=== PATIENT | female | born 1960 | race Caucasian/White ===

== ENCOUNTER 2017-05-13 12:36 | Emergency (ER) | payer MEDICARE, MEDICAID ==
[2017-05-13] MEDS ORDERED: Ketorolac 60 MG/2 ML SDV IM ONE (13:18)
[2017-05-13 13:27] VITALS: BP 180/92
--- NOTE | 2017-05-13 14:24 | EDM.PDOC ---
ED HPI GENERAL MEDICAL PROBLEM - General Chief Complaint: Lower Extremity Injury/Pain Stated Complaint: numbness left arm Time Seen by Provider: 05/13/17 13:25 Source of Information: Reports: Patient History Limitations: Reports: No Limitations - History of Present Illness Onset: Today Duration: Hour(s): (3) Quality: Reports: Ache, Same as Previous Episode, Throbbing Severity: Moderate Improves with: Reports: None Worsens with: Reports: None Context: Reports: Other (chronic back pain) Associated Symptoms: Reports: Fever/Chills Treatments DIRECTOR OF SCIENCE: Reports: Acetaminophen Lower Back Pain Score (Numeric/FACES): 10 - Related Data Allergies Allergy/AdvReac Type Severity Reaction Status Date / Time Penicillins Allergy Cannot Verified 05/13/17 13:27 Remember Sulfa (Sulfonamide Allergy Cannot Verified 05/13/17 13:27 Antibiotics) Remember Home Meds: Home Meds Tolterodine [Detrol LA 24 Hr] 4 mg PO DAILY 12/22/13 [History] traZODone HCl [Trazodone HCl] 50 - 200 mg PO BEDTIME PRN 12/22/13 [History] traMADol HCl [Ultram] 50 mg PO TID 04/01/16 [History] Aspirin [Halfprin] 81 mg PO DAILY 04/02/16 [History] Docusate Sodium [Colace] 100 mg PO DAILY PRN 04/02/16 [History] Fenofibrate,Micronized [Fenofibrate] 134 mg PO DAILY 04/02/16 [History] Gabapentin [Neurontin] 300 mg PO BID 04/02/16 [History] Lurasidone [Latuda] 40 mg PO QPM 04/02/16 [History] Naproxen 500 mg PO BID PRN 04/02/16 [History] Omeprazole [Prilosec] 20 mg PO DAILY 04/02/16 [History] lamoTRIgine [LaMICtal] 150 mg PO DAILY 04/02/16 [History] sitaGLIPtin Phos/Metformin HCl [Janumet 50-1,000 MG] 1 each PO BIDMEALS [History] tiZANidine HCl [Zanaflex] 2 mg PO DAILY PRN 04/02/16 [History] Past Medical History - Past Health History Medical/Surgical History: Denies Medical/Surgical History HEENT History: Reports: None Cardiovascular History: Reports: High Cholesterol, Hypertension Respiratory History: Reports: Asthma, Bronchitis, Recurrent, Other (See Below) Other Respiratory History: smoker Gastrointestinal History: Reports: GERD, Irritable Bowel Syndrome Genitourinary History: Reports: None 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: Musculoskeletal History: Reports: Arthritis, Back Pain, Chronic Neurological History: Reports: Headaches, Chronic Psychiatric History: Reports: Anxiety, Depression, Emotional Problems, Learning Disability Endocrine/Metabolic History: Reports: Diabetes, Type II Hematologic History: Reports: Other (See Below) Other Hematologic History: low sodium, cramps Immunologic History: Reports: None Oncologic (Cancer) History: Reports: None Dermatologic History: Reports: None - Past Surgical History GI Surgical History: Reports: Cholecystectomy, Other (See Below) Social & Family History - Family History : Reports: None Endocrine/Metabolic: Reports: None Hematologic: Reports: None - Tobacco Use Smoking Status *Q: Never Smoker Years of Tobacco use: 45 Packs/Tins Daily: 1 Used Tobacco, but Quit: No Month Tobacco Last Used: unknown Second Hand Smoke Exposure: No - Caffeine Use Caffeine Use: Reports: Coffee - Alcohol Use Days Per Week of Alcohol Use: 0 Number of Drinks Per Day: 0 Total Drinks Per Week: 0 - Recreational Drug Use Recreational Drug Use: No Drug Use in Last 12 Months: No Review of Systems - Review of Systems Review Of Systems: See Below Constitutional: Reports: Chills Eyes: Reports: No Symptoms Ears: Reports: No Symptoms Nose: Reports: No Symptoms Mouth/Throat: Reports: No Symptoms Respiratory: Reports: No Symptoms Cardiovascular: Reports: No Symptoms GI/Abdominal: Reports: No Symptoms Genitourinary: Reports: No Symptoms Musculoskeletal: Reports: Back Pain Skin: Reports: No Symptoms (Left arm) Neurological: Reports: Numbness Psychiatric: Reports: No Symptoms ED EXAM, GENERAL - Physical Exam Exam: See Below Exam Limited By: No Limitations General Appearance: Alert, WD/WN, No Apparent Distress Eye Exam: Bilateral Eye: Normal Fundi, Normal Inspection, PERRL Ears: Normal External Exam, Normal Canal, Hearing Grossly Normal, Normal TMs Ear Exam: Bilateral Ear: Auricle Normal, Canal Normal, TM normal Nose: Normal Inspection, Normal Mucosa, No Blood Throat/Mouth: Normal Inspection, Normal Lips, Normal Teeth, Normal Gums, Normal Oropharynx, Normal Voice, No Airway Compromise Head: Atraumatic, Normocephalic Neck: Normal Inspection, Supple, Non-Tender, Full Range of Motion Respiratory/Chest: No Respiratory Distress, Lungs Clear, Normal Breath Sounds, No Accessory Muscle Use, Chest Non-Tender Cardiovascular: Normal Peripheral Pulses, Regular Rate, Rhythm, No Edema, No Gallop, No JVD, No Murmur, No Rub Peripheral Pulses: 2+: Posterior Tibial (L), Posterior Tibial (R), Dorsalis Pedis (L), Dorsalis Pedis (R) GI/Abdominal: Normal Bowel Sounds, Soft, Non-Tender, No Organomegaly, No Distention, No Abnormal Bruit, No Mass Back Exam: Decreased Range of Motion, Muscle Spasm (left lower back and left arm numbness that has been there before.), Paraspinal Tenderness Extremities: Normal Inspection Neurological: Alert, Oriented, CN II-XII Intact, Normal Cognition, Normal Gait, Normal Reflexes, No Motor/Sensory Deficits Psychiatric: Normal Affect, Normal Mood Skin Exam: Warm, Dry, Intact, Normal Color, No Rash Lymphatic: No Adenopathy Course - Vital Signs Text/Narrative:: Uneventful ED course. She was given IM toradol and that brought her pain down to a 4/10 from a 10/10. She wanted to go home and take her Flexeril and take a nap. Last Recorded V/S: Last Vital Signs Temp Pulse 105 H 05/13/17 13:20 Resp 18 05/13/17 13:20 BP 180/92 H 05/13/17 13:20 Pulse Ox 98 05/13/17 13:20 - Orders/Labs/Meds Labs: Laboratory Tests 05/13/17 05/13/17 Range/Units 13:30 13:30 WBC 11.6 H (4.0-11.0) K/uL RBC 5.22 (3.80-5.80) M/uL Hgb 14.5 (11.5-16.5) g/dL Hct 43.3 (37.0-47.0) % MCV 83 (76-96) fL MCH 27.8 (27.0-32.0) pg MCHC 33.5 (31.0-35.0) g/dL RDW 14.5 (11.0-16.0) % Plt Count 384 (150-500) K/uL MPV 10.0 (6.0-10.0) fL Neut % (Auto) 62.3 (45.0-70.0) % Lymph % (Auto) 30.7 (20.0-40.0) % [place] % (Auto) 6.1 (3.0-10.0) % Eos % (Auto) 0.6 L (1.0-5.0) % Baso % (Auto) 0.3 (0.0-0.5) % Neut # (Auto) 7.25 (2.00-7.50) K/uL Lymph # (Auto) 3.57 (1.50-4.00) K/uL [place] # (Auto) 0.71 (0.20-0.80) K/uL Eos # (Auto) 0.07 (0.04-0.40) K/uL Baso # (Auto) 0.04 (0.02-0.10) K/uL Sodium 142 (136-145) mmol/L Potassium 3.6 (3.5-5.1) mmol/L Chloride 103 (98-107) mmol/L Carbon Dioxide 26.9 (21.0-32.0) mmol/L Anion Gap 15.7 H (5.0-15.0) mmol/L BUN 11 D (8-26) mg/dL Creatinine 1.19 H (0.55-1.02) mg/dL Est Cr Clr Drug Dosing 36.56 mL/min Estimated GFR (MDRD) 46 L (>60) MLS/MIN BUN/Creatinine Ratio 9.2 (6-25) Glucose 128 H (74-100) mg/dL Calcium 9.4 (8.5-10.1) mg/dL Total Bilirubin 0.5 (0.0-1.0) mg/dL AST 33 (15-37) U/L ALT 41 (12-78) U/L Alkaline Phosphatase 62 (46-116) U/L Total Protein 8.1 (6.4-8.2) g/dL Albumin 4.5 (3.4-5.0) g/dL Globulin 3.6 (2.2-4.2) g/dL Albumin/Globulin Ratio 1.2 (0.8-2.0) Meds: Medications Discontinued Medications Generic Name Dose Route Start Last Admin Trade Name Freq PRN Reason Stop Dose Admin Ketorolac Tromethamine 60 mg 06/18/17 13:18 05/13/17 13:29 Toradol IM 05/13/17 13:19 60 mg ONETIME ONE Administration Departure - Departure Time of Disposition: 14:24 Disposition: Home, Self-Care 01 Preliminary Cause of *Q: Cardiac Arrest Condition: Good Clinical Impression: Left arm numbness Lumbago Qualifiers: Chronicity: chronic Back pain laterality: left Sciatica presence: with sciatica Sciatica laterality: sciatica of left side Qualified Code(s): M54.42 - Lumbago with sciatica, left side; G89.29 - Other chronic pain - Discharge Information Instructions: Cryotherapy, [id number] Referrals: PCP,None [Primary Care Provider] - Forms: ED Department Discharge Additional Instructions: Take the naproxen tonight and tomorrow start to take the naproxen every 12 hours -- you can take one in the morning and one at night. If you have any questions call [phone] and for a clinic appt [phone]. Take the Flexeril with breakfast, lunch, and dinner.
== END 2017-05-13 14:13 | disposition home or self-care (01) ==
LOC: LB.ED 12:36
DX: M54.42 Lumbago with sciatica, left side (principal); G89.29 Other chronic pain; R20.0 Anesthesia of skin; E78.00 Pure hypercholesterolemia, unspecified; I10 Essential (primary) hypertension; Z79.82 Long term (current) use of aspirin; J45.909 Unspecified asthma, uncomplicated; K21.9 Gastro-esophageal reflux disease without esophagitis; F41.9 Anxiety disorder, unspecified; F32.9 Major depressive disorder, single episode, unspecified; E11.9 Type 2 diabetes mellitus without complications; M19.90 Unspecified osteoarthritis, unspecified site; Z90.49 Acquired absence of other specified parts of digestive tract; Z88.0 Allergy status to penicillin; Z88.2 Allergy status to sulfonamides; Z79.899 Other long term (current) drug therapy
CPT/HCPCS: 36415; 80053; 85025; 96372; 99283; J1885

== ENCOUNTER 2019-10-08 20:10 | Emergency (ER) | payer MEDICARE, MEDICAID ==
[2019-10-08 21:34] VITALS: BP 156/98; PULSE 85
--- NOTE | 2019-10-08 22:33 | ER ---
REASON FOR EMERGENCY ROOM VISIT: Sore throat. HISTORY: This 59-year-old woman comes in with a 1-day history of bilateral ear fullness with a sore throat and minimally productive cough. She has not had any myalgias or GI symptoms. She denies any fever or chills. She was vaccinated for influenza earlier this fall. PAST MEDICAL HISTORY: Significant for: 1. Diabetes mellitus. 2. Hypertension. 3. Bipolar disorder. 4. Obesity. 5. GERD. 6. Schizophrenia. 7. Low back pain with spinal stenosis in the lumbar area. MEDICATIONS WERE: Reviewed. Please see EMR. ALLERGIES: TO PENICILLIN AND SULFA. REVIEW OF SYSTEMS: Pertinent positives and negatives as listed in the HPI. PHYSICAL EXAMINATION: GENERAL: Reveals a pleasant woman in no acute distress. She is afebrile. Pulse of 85, blood pressure 156/98, respiratory rate 16, O2 sats 98% on room air. HEENT: No conjunctivitis. TMs are visualized and appear normal. Oropharynx is normal. She is edentulous. NECK: Supple. No adenopathy. CHEST: Clear to auscultation with good breath sounds bilaterally and no wheezes, rhonchi, or rales. CARDIAC: Regular rate without murmur. ABDOMEN: Soft. No organomegaly. SKIN: No rashes. IMPRESSION: Upper respiratory tract infection. PLAN: I discussed whether the usual supportive measures including ibuprofen or Tylenol as needed, antitussive medications [id number], Zyrtec as needed if she gets nasal congestion. Rest and plenty of liquids. If she feels worse or develops fever or increased respiratory problems, she should be seen again and I urged her to follow up with her provider Zoey Rodriguez in the clinic if there are any additional questions or concerns going forward. She agrees with this and understands and all questions were answered. DELON /[id number]
== END 2019-10-08 21:59 | disposition home or self-care (01) ==
LOC: LB.ED 20:10
DX: J06.9 Acute upper respiratory infection, unspecified (principal); I10 Essential (primary) hypertension; E11.9 Type 2 diabetes mellitus without complications; E66.9 Obesity, unspecified; Z68.41 Body mass index [BMI] 40.0-44.9, adult
CPT/HCPCS: 99282

== ENCOUNTER 2020-08-06 07:01 | Day surgery (SDC) | payer MEDICARE, MEDICAID ==
[~2020-08-06 07:01] MED LIST: Metoclopramide 10 MG/2 ML SDV IV PRN; Sodium Chloride 0.9% 1,000 ML IV SCH
[2020-08-06] MEDS ORDERED: Propofol 1,000 MG/100 ML SDV ONE (10:00)
--- NOTE | 2020-08-06 10:47 | OR ---
DATE OF OPERATION: 08/06/2020 SURGEON: Jaden Wolf MD PREOPERATIVE DIAGNOSIS: Screening colonoscopy. POSTOPERATIVE DIAGNOSIS: Screening colonoscopy. PROCEDURE: Colonoscopy with polypectomy. ANESTHESIA: MAC. ESTIMATED BLOOD LOSS: Minimal. COMPLICATIONS: None. INDICATION FOR THE PROCEDURE: The patient is a 60-year-old female who last had a colonoscopy approximately 10 years ago. She denies any change in bowel habits since that time. DESCRIPTION OF PROCEDURE: Informed consent was obtained with the patient. The patient was taken to the operating room and placed on table in left lateral decubitus position. Monitored anesthesia care was administered. Digital rectal exam performed, it was normal. Colonoscope was then advanced through the sigmoid. She did have a very tortuous sigmoid. Adult scope removed, pediatric colonoscope inserted. I was able to negotiate through the sigmoid and did reach the cecum. Cecum was identified by appendiceal orifice and ileocecal valve. Colonoscope was then slowly withdrawn. She did have several polyps in the proximal ascending colon removed by hot forceps polypectomy. Descending colon polyp also removed with hot forceps polypectomy. She had 1 small sigmoid colon polyp removed by hot forceps polypectomy and an additional sigmoid colon polyp removed by hot snare polypectomy. All polyps were small and sessile. She did have mild diverticulosis throughout the colon. Colonoscope was further withdrawn. Rectum was unremarkable. Colonoscope was then fully withdrawn. FINDINGS: Pancolonic diverticulosis and colon polyps x4. RECOMMENDATIONS: We will follow up on pathology. Nothing appeared concerning for cancer. Plan for repeat colonoscopy in 3 years. ANTHONY/DAKOTA /[id number]
[2020-08-06 12:34] VITALS: BP 156/84; PULSE 80
== END 2020-08-06 11:30 | disposition home or self-care (01) ==
LOC: LB.SDS 07:01
PROVIDERS: ATTEND Surgery
DX: Z12.11 Encounter for screening for malignant neoplasm of colon (principal); K57.30 Diverticulosis of large intestine without perforation or abscess without bleeding; I10 Essential (primary) hypertension; E11.9 Type 2 diabetes mellitus without complications; E78.5 Hyperlipidemia, unspecified; F51.04 Psychophysiologic insomnia; F17.210 Nicotine dependence, cigarettes, uncomplicated; E78.2 Mixed hyperlipidemia; K21.9 Gastro-esophageal reflux disease without esophagitis; N39.3 Stress incontinence (female) (male); K58.9 Irritable bowel syndrome, unspecified; M19.90 Unspecified osteoarthritis, unspecified site; D12.5 Benign neoplasm of sigmoid colon; D12.2 Benign neoplasm of ascending colon; D12.4 Benign neoplasm of descending colon; Z79.899 Other long term (current) drug therapy; Z79.82 Long term (current) use of aspirin; Z79.84 Long term (current) use of oral hypoglycemic drugs
CPT/HCPCS: 45384; 45385; 82962; J2704; J7030; 88305

== ENCOUNTER 2021-06-11 23:42 | Emergency (ER) | payer MEDICARE, MEDICAID ==
[2021-06-12] MEDS ORDERED: Naloxone 2 MG/2 ML Syringe IVPUSH STA (00:13)
[2021-06-12] MEDS ORDERED: Sodium Chloride 0.9% 1,000 ML IV ONE (00:13)
[2021-06-12] MEDS ORDERED: Sodium Chloride 0.9% 10 ML Syringe FLUSH PRN (00:13)
--- NOTE | 2021-06-12 00:26 | EDM.PDOCBH ---
ED HPI GENERAL MEDICAL PROBLEM - General Chief Complaint: Drug or Alcohol Abuse Stated Complaint: MEDICATION MANAGEMENT Time Seen by Provider: 06/11/21 23:45 Source of Information: Reports: EMS History Limitations: Reports: Altered Mental Status - History of Present Illness INITIAL COMMENTS - FREE TEXT/NARRATIVE: was brought to the ER due to a possible overdose. h/o drug abuse in the past. U-ibnta arrival - Related Data Allergies Allergy/AdvReac Type Severity Reaction Status Date / Time Penicillins Allergy Cannot Verified 08/06/20 07:35 Remember Sulfa (Sulfonamide Allergy Cannot Verified 08/06/20 07:35 Antibiotics) Remember Home Meds: Home Meds Aspirin [Halfprin] 81 mg PO DAILY 04/02/16 [History] Docusate Sodium [Colace] 100 mg PO DAILY PRN 04/02/16 [History] Fenofibrate,Micronized [Fenofibrate] 134 mg PO DAILY 04/02/16 [History] Gabapentin [Neurontin] 300 mg PO BID 04/02/16 [History] Lurasidone [Latuda] 60 mg PO QPM 04/02/16 [History] Omeprazole [Prilosec] 20 mg PO DAILY 04/02/16 [History] lamoTRIgine [LaMICtal] 150 mg PO DAILY 04/02/16 [History] tiZANidine HCl [Zanaflex] 2 mg PO DAILY PRN 04/02/16 [History] Blood-Glucose Meter [Accu-Chek Aileen Connect] 1 strip .ROUTE ASDIRECTED 05/16/17 [History] Lisinopril/Hydrochlorothiazide [Lisinopril-Hctz 10-12.5 mg Tab] 1 each PO DAILY 05/16/17 [History] traZODone HCl [Trazodone HCl] 100 tab PO BEDTIME 05/16/17 [History] Acetaminophen [Tylenol Arthritis Pain] 650 mg PO BID PRN 11/28/18 [History] Tolterodine Tartrate [Detrol LA] 4 mg PO DAILY 11/28/18 [History] atorvaSTATin [Lipitor] 10 mg PO DAILY 11/28/18 [History] sitaGLIPtin Phos/Metformin HCl [Janumet 50-500 MG] 50 mg PO BID 11/28/18 [History] traMADol HCl [Tramadol HCl] 50 mg PO DAILY 11/28/18 [History] Past Medical History - Past Health History Medical/Surgical History: Denies Medical/Surgical History HEENT History: Reports: None Cardiovascular History: Reports: High Cholesterol, Hypertension Respiratory History: Reports: Asthma, Bronchitis, Recurrent, Other (See Below) Other Respiratory History: smoker, has cut down to 2 cigs day Gastrointestinal History: Reports: GERD, Irritable Bowel Syndrome Genitourinary History: Reports: Urinary Incontinence 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: Musculoskeletal History: Reports: Arthritis, Back Pain, Chronic, Other (See Below) Other Musculoskeletal History: carpal tunnel left wrist, left foot pain 4th and 5th diget and top of foot (left) Neurological History: Reports: Headaches, Chronic, Other (See Below) Other Neuro History: complaint of numb lip Psychiatric History: Reports: Anxiety, Depression, Emotional Problems, Learning Disability Endocrine/Metabolic History: Reports: Diabetes, Type II Hematologic History: Reports: Other (See Below) Other Hematologic History: low sodium, cramps Immunologic History: Reports: None Oncologic (Cancer) History: Reports: None Dermatologic History: Reports: None - Past Surgical History GI Surgical History: Reports: Cholecystectomy, Other (See Below) Female Surgical History: Reports: None Endocrine Surgical History: Reports: None Neurological Surgical History: Reports: None Social & Family History - Family History Family Medical History: No Pertinent Family History : Reports: None Endocrine/Metabolic: Reports: None Hematologic: Reports: None - Caffeine Use Caffeine Use: Reports: Coffee COURSE, BEHAVIORAL HEALTH COMP - Course Orders, Labs, Meds: Active Orders 24 hr Category Date Time Status BASIC METABOLIC PANEL,BMP [CHEM] Stat Lab 06/12/21 00:13 Ordered CBC W/O DIFF,HEMOGRAM [HEME] Stat Lab 06/12/21 00:13 Ordered DRUG SCREEN, URINE [URCHEM] Stat Lab 06/12/21 00:13 Ordered Sodium Chloride 0.9% [Normal Saline] 1,000 ml Med 06/12/21 00:13 Ordered IV .BOLUS Sodium Chloride 0.9% [Saline Flush] Med 06/12/21 00:13 Ordered 10 ml FLUSH ASDIRECTED PRN Saline Lock Insert [OM.PC] Routine Oth 06/12/21 00:13 Ordered Medication Orders Sodium Chloride (Normal Saline) 1,000 mls @ 999 mls/hr IV .BOLUS ONE Stop: 06/12/21 01:13 Sodium Chloride (Sodium Chloride 0.9% 10 Ml Syringe) 10 ml FLUSH ASDIRECTED PRN PRN Reason: Keep Vein Open Medications Generic Name Dose Route Start Last Admin Trade Name Trevor PRN Reason Stop Dose Admin Sodium Chloride 1,000 mls @ 999 mls/hr 06/12/21 00:13 Normal Saline IV 06/12/21 01:13 .BOLUS ONE Sodium Chloride 10 ml 06/12/21 00:13 Sodium Chloride 0.9% 10 Ml Syringe FLUSH ASDIRECTED PRN Keep Vein Open Discontinued Medications Generic Name Dose Route Start Last Admin Trade Name Trevor PRN Reason Stop Dose Admin Naloxone HCl 0.1 mg 06/12/21 00:13 Naloxone 2 Mg/2 Ml Syringe IVPUSH 06/12/21 00:14 NOW STA Departure - Discharge Information Forms: ED Department Discharge - My Orders Last 24 Hours: My Active Orders 06/12/21 00:13 BASIC METABOLIC PANEL,BMP [CHEM] Stat CBC W/O DIFF,HEMOGRAM [HEME] Stat DRUG SCREEN, URINE [URCHEM] Stat Sodium Chloride 0.9% [Normal Saline] 1,000 ml IV .BOLUS Sodium Chloride 0.9% [Saline Flush] 10 ml FLUSH ASDIRECTED PRN Saline Lock Insert [OM.PC] Routine - Assessment/Plan Last 24 Hours: My Active Orders 06/12/21 00:13 BASIC METABOLIC PANEL,BMP [CHEM] Stat CBC W/O DIFF,HEMOGRAM [HEME] Stat DRUG SCREEN, URINE [URCHEM] Stat Sodium Chloride 0.9% [Normal Saline] 1,000 ml IV .BOLUS Sodium Chloride 0.9% [Saline Flush] 10 ml FLUSH ASDIRECTED PRN Saline Lock Insert [OM.PC] Routine
[2021-06-12] MEDS ORDERED: traZODone 100 MG Tab PO STA (03:10)
--- NOTE | 2021-06-12 03:12 | EDM.PDOCBH ---
ED HPI GENERAL MEDICAL PROBLEM - General Chief Complaint: Behavioral/Psych Stated Complaint: MEDICATION MANAGEMENT Time Seen by Provider: 06/12/21 02:30 Source of Information: Reports: Patient History Limitations: Reports: No Limitations - History of Present Illness INITIAL COMMENTS - FREE TEXT/NARRATIVE: patient presented to the ER requesting to refill all her home meds she reports that she accidentally - dropped her meds on the floor. She usually get them refilled via a publish health care worker - but it's Sunday night - and she is here for an advice. No other symptoms. Her main concerns are her sleeping meds - Trazodone - which she is requesting to help her sleep. - Related Data Allergies Allergy/AdvReac Type Severity Reaction Status Date / Time Penicillins Allergy Cannot Verified 06/12/21 04:49 Remember Sulfa (Sulfonamide Allergy Cannot Verified 06/12/21 04:49 Antibiotics) Remember Home Meds: Home Meds Aspirin [Halfprin] 81 mg PO DAILY 04/02/16 [History] Docusate Sodium [Colace] 100 mg PO DAILY PRN 04/02/16 [History] Fenofibrate,Micronized [Fenofibrate] 134 mg PO DAILY 04/02/16 [History] Gabapentin [Neurontin] 300 mg PO BID 04/02/16 [History] Lurasidone [Latuda] 60 mg PO QPM 04/02/16 [History] Omeprazole [Prilosec] 20 mg PO DAILY 04/02/16 [History] lamoTRIgine [LaMICtal] 150 mg PO DAILY 04/02/16 [History] tiZANidine HCl [Zanaflex] 2 mg PO DAILY PRN 04/02/16 [History] Blood-Glucose Meter [Accu-Chek Aileen Connect] 1 strip .ROUTE ASDIRECTED 05/16/17 [History] Lisinopril/Hydrochlorothiazide [Lisinopril-Hctz 10-12.5 mg Tab] 1 each PO DAILY 05/16/17 [History] traZODone HCl [Trazodone HCl] 100 tab PO BEDTIME 05/16/17 [History] Acetaminophen [Tylenol Arthritis Pain] 650 mg PO BID PRN 11/28/18 [History] Tolterodine Tartrate [Detrol LA] 4 mg PO DAILY 11/28/18 [History] atorvaSTATin [Lipitor] 10 mg PO DAILY 11/28/18 [History] sitaGLIPtin Phos/Metformin HCl [Janumet 50-500 MG] 50 mg PO BID 11/28/18 [History] traMADol HCl [Tramadol HCl] 50 mg PO DAILY 11/28/18 [History] Past Medical History - Past Health History Medical/Surgical History: Denies Medical/Surgical History HEENT History: Reports: None Cardiovascular History: Reports: High Cholesterol, Hypertension Respiratory History: Reports: Asthma, Bronchitis, Recurrent, Other (See Below) Other Respiratory History: smoker, has cut down to 2 cigs day Gastrointestinal History: Reports: GERD, Irritable Bowel Syndrome Genitourinary History: 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: Urinary 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: Musculoskeletal History: Reports: Arthritis, Back Pain, Chronic, Other (See Below) Other Musculoskeletal History: carpal tunnel left wrist, left foot pain 4th and 5th diget and top of foot (left) Neurological History: Reports: Headaches, Chronic, Other (See Below) Other Neuro History: complaint of numb lip Psychiatric History: Reports: Anxiety, Depression, Emotional Problems, Learning Disability Endocrine/Metabolic History: Reports: Diabetes, Type II Hematologic History: Reports: Other (See Below) Other Hematologic History: low sodium, cramps Immunologic History: Reports: None Oncologic (Cancer) History: Reports: None Dermatologic History: Reports: None - Past Surgical History GI Surgical History: Reports: Cholecystectomy, Other (See Below) Female Surgical History: Reports: None Endocrine Surgical History: Reports: None Neurological Surgical History: Reports: None Social & Family History - Family History Family Medical History: No Pertinent Family History : Reports: None Endocrine/Metabolic: Reports: None Hematologic: Reports: None - Caffeine Use Caffeine Use: Reports: Coffee ED ROS GENERAL - Review of Systems Review Of Systems: See Below Constitutional: Reports: No Symptoms HEENT: Reports: No Symptoms Respiratory: Reports: No Symptoms Cardiovascular: Reports: No Symptoms GI/Abdominal: Reports: No Symptoms : Reports: No Symptoms Musculoskeletal: Reports: No Symptoms Skin: Reports: No Symptoms ED EXAM, BEHAVIORAL HEALTH - Physical Exam Exam: See Below Exam Limited By: No Limitations General Appearance: Alert, WD/WN, No Apparent Distress Eye Exam: Bilateral Eye: EOMI, PERRL Respiratory/Chest: No Respiratory Distress, Lungs Clear Cardiovascular: Normal Peripheral Pulses, Regular Rate, Rhythm GI/Abdominal: Normal Bowel Sounds, Soft, Non-Tender Extremities: Normal Inspection, Normal Range of Motion Neurological: Alert, Normal Mood/Affect COURSE, BEHAVIORAL HEALTH COMP - Course Orders, Labs, Meds: Medications Discontinued Medications Generic Name Dose Route Start Last Admin Trade Name Trevor PRN Reason Stop Dose Admin Trazodone HCl 100 mg 06/12/21 03:10 06/12/21 03:19 Trazodone 100 Mg Tab PO 06/12/21 03:11 100 mg NOW STA Administration Discharge vs Psych Eval/Treatment:: discussed with the patient that she can contact her public health care worker tomorrow's morning - who will be able to help her with her meds. No pharmacy is open tonight at midnight and none of her medications can cause problems if she misses a dose or 2. Her sleeping meds are her main concerns. meanwhile, I'll provide her with trazodone to help her sleep tonight. Patient agreed with the plan. Departure - Departure Time of Disposition: 01:30 Disposition: Home, Self-Care 01 Condition: Good Clinical Impression: Medication refill - Discharge Information *PRESCRIPTION DRUG MONITORING PROGRAM REVIEWED*: Not Applicable *COPY OF PRESCRIPTION DRUG MONITORING REPORT IN PATIENT FELIX: Not Applicable Instructions: What You Need To Know About Antipsychotic Medicines, Medicine Refill at the Emergency Department Referrals: PCP,Unknown [Ordering Only Provider] - Forms: ED Department Discharge Additional Instructions: - contact your public health specialist tomorrow ( Lavinia ) to discuss medications refill - Problem List & Annotations (1) Medication refill SNOMED Code(s): 536853444, 815245615, [id number] Code(s): Z76.0 - ENCOUNTER FOR ISSUE OF REPEAT PRESCRIPTION Status: Acute Priority: Low - Problem List Review Problem List Initiated/Reviewed/Updated: Yes
== END 2021-06-12 03:20 | disposition home or self-care (01) ==
LOC: LB.ED 23:42
DX: F32.9 Major depressive disorder, single episode, unspecified (principal); Z76.0 Encounter for issue of repeat prescription; E78.00 Pure hypercholesterolemia, unspecified; I10 Essential (primary) hypertension; K21.9 Gastro-esophageal reflux disease without esophagitis; E11.9 Type 2 diabetes mellitus without complications; Z79.82 Long term (current) use of aspirin; Z79.899 Other long term (current) drug therapy; Z88.0 Allergy status to penicillin; Z88.2 Allergy status to sulfonamides
CPT/HCPCS: 99281; 99282; A9270

== ENCOUNTER 2022-05-14 17:40 | Emergency (ER) | payer MEDICARE, MEDICAID ==
[2022-05-14] MEDS ORDERED: Sodium Chloride 0.9% 1,000 ML IV ONE ×2 (17:46→18:49)
[2022-05-14 18:31] LABS: ESTIMATED GFR 30 mL/min (>60)
[2022-05-14] MEDS ORDERED: Metoprolol Succinate 50 MG Tab.ER PO ONE (20:20)
[2022-05-14] MEDS ORDERED: Metoprolol Tartrate 50 MG Tab ONE (20:37)
[2022-05-14] MEDS ORDERED: Furosemide 40 MG/4 ML VIAL IVPUSH ONE (21:14)
[2022-05-14] MEDS ORDERED: Furosemide 40 MG/4 ML VIAL ONE (21:24)
[2022-05-14 21:59] VITALS: BP 171/88; PULSE 84
== END 2022-05-14 21:55 | disposition home or self-care (01) ==
LOC: LB.ED 17:40
DX: E86.0 Dehydration (principal); E87.1 Hypo-osmolality and hyponatremia; E87.8 Other disorders of electrolyte and fluid balance, not elsewhere classified; E78.00 Pure hypercholesterolemia, unspecified; I10 Essential (primary) hypertension; K21.9 Gastro-esophageal reflux disease without esophagitis; E11.9 Type 2 diabetes mellitus without complications; Z88.0 Allergy status to penicillin; Z88.2 Allergy status to sulfonamides; Z79.82 Long term (current) use of aspirin; Z79.899 Other long term (current) drug therapy
CPT/HCPCS: 36415; 80048; 80053; 80307; 81001; 82947; 83605; 85025; 96361; 96374; 99282; 99284; A9270; J1940; J7030

== ENCOUNTER 2022-05-17 22:06 | Emergency (ER) | payer MEDICARE, MEDICAID ==
[2022-05-17 22:49] VITALS: BP 133/71; PULSE 82
== END 2022-05-17 22:30 | disposition home or self-care (01) ==
LOC: LB.ED 22:06
DX: M79.81 Nontraumatic hematoma of soft tissue (principal); E78.00 Pure hypercholesterolemia, unspecified; I10 Essential (primary) hypertension; E11.9 Type 2 diabetes mellitus without complications; K21.9 Gastro-esophageal reflux disease without esophagitis; Z88.0 Allergy status to penicillin; Z88.2 Allergy status to sulfonamides; Z79.82 Long term (current) use of aspirin; Z79.899 Other long term (current) drug therapy
CPT/HCPCS: 99281; 99283

== ENCOUNTER 2022-05-22 16:46 | Emergency (ER) | payer MEDICARE, MEDICAID ==
[2022-05-22] MEDS: Sodium Chloride 0.9% 1,000 ML IV SCH (17:26)
[2022-05-22 18:29] VITALS: BP 172/93; PULSE 80
== END 2022-05-22 18:35 | disposition home or self-care (01) ==
LOC: LB.ED 16:46
DX: E87.1 Hypo-osmolality and hyponatremia (principal); E11.22 Type 2 diabetes mellitus with diabetic chronic kidney disease; N18.9 Chronic kidney disease, unspecified; I10 Essential (primary) hypertension; K21.9 Gastro-esophageal reflux disease without esophagitis
CPT/HCPCS: 36415; 80048; 96360; 99282; 99283-25; J7030

== ENCOUNTER 2022-05-30 23:30 | Observation (INO) | payer MEDICARE, MEDICAID ==
[2022-05-31] MEDS: Sodium Chloride 0.9% 10 ML Syringe FLUSH PRN (05:45)
[2022-05-31] MEDS: Sodium Chloride 0.9% 1,000 ML IV ONE (05:47)
[2022-05-31 07:59] VITALS: PULSE 78
[2022-05-31] MEDS: Sodium Chloride 0.9% 500 ML IV ONE (10:55)
[2022-05-31 12:28] VITALS: BP 104/62
== END 2022-05-31 13:55 | disposition home or self-care (01) ==
LOC: LB.ED 23:30 → LB.MS 05-31 00:23 → UNDOADMOB 05-31 00:41
PROVIDERS: ADMIT Nurse Practitioner Family; ATTEND Nurse Practitioner Family
DX: T50.901A Poisoning by unspecified drugs, medicaments and biological substances, accidental (unintentional), initial encounter (principal); F79 Unspecified intellectual disabilities; E78.00 Pure hypercholesterolemia, unspecified; I10 Essential (primary) hypertension; E11.9 Type 2 diabetes mellitus without complications; Z90.49 Acquired absence of other specified parts of digestive tract; Z88.0 Allergy status to penicillin; Z88.2 Allergy status to sulfonamides; Z79.82 Long term (current) use of aspirin; Z79.899 Other long term (current) drug therapy; Z20.822 Contact with and (suspected) exposure to COVID-19
CPT/HCPCS: 36415; 80053; 80307; 82947; 85025; 99234; 99284; G0378; J3490; J7030; J7040; U0002

== ENCOUNTER 2022-06-06 13:22 | Emergency (ER) | payer MEDICARE, MEDICAID ==
[2022-06-06] MEDS ORDERED: Sodium Chloride 0.9% 1,000 ML IV ONE (13:56)
[2022-06-06 15:26] VITALS: BP 158/88; PULSE 76
[2022-06-06 17:02] LABS: ESTIMATED GFR 39 mL/min (>60)
== END 2022-06-06 17:16 | disposition home or self-care (01) ==
LOC: LB.ED 13:22
DX: E87.8 Other disorders of electrolyte and fluid balance, not elsewhere classified (principal); E78.00 Pure hypercholesterolemia, unspecified; K21.9 Gastro-esophageal reflux disease without esophagitis; I10 Essential (primary) hypertension; E11.9 Type 2 diabetes mellitus without complications; Z88.0 Allergy status to penicillin; Z88.2 Allergy status to sulfonamides; Z79.899 Other long term (current) drug therapy; Z79.82 Long term (current) use of aspirin; Z90.49 Acquired absence of other specified parts of digestive tract
CPT/HCPCS: 36415; 80048; 85025; 96360; 96361; 99283; J7030; 99281

== ENCOUNTER 2022-06-10 23:12 | Emergency (ER) | payer MEDICARE, MEDICAID ==
[2022-06-10 23:52] VITALS: BP 162/79; PULSE 82
== END 2022-06-11 00:08 | disposition home or self-care (01) ==
LOC: LB.ED 23:12
DX: J02.9 Acute pharyngitis, unspecified (principal); E11.9 Type 2 diabetes mellitus without complications; I10 Essential (primary) hypertension; K21.9 Gastro-esophageal reflux disease without esophagitis; Z88.0 Allergy status to penicillin; Z79.82 Long term (current) use of aspirin; Z79.899 Other long term (current) drug therapy
CPT/HCPCS: 99282

== ENCOUNTER 2022-07-15 20:30 | Emergency (ER) | payer MEDICARE, MEDICAID ==
[2022-07-15] MEDS ORDERED: Acetaminophen 500 MG Tab PO ONE (20:46)
[2022-07-15 21:30] VITALS: BP 142/75; PULSE 89
== END 2022-07-15 21:20 | disposition home or self-care (01) ==
LOC: LB.ED 20:30
DX: S99.922A Unspecified injury of left foot, initial encounter (principal); E78.00 Pure hypercholesterolemia, unspecified; I10 Essential (primary) hypertension; K21.9 Gastro-esophageal reflux disease without esophagitis; E11.9 Type 2 diabetes mellitus without complications; Z79.82 Long term (current) use of aspirin; Z79.899 Other long term (current) drug therapy; Z88.0 Allergy status to penicillin; Z88.2 Allergy status to sulfonamides; W23.1XXA Caught, crushed, jammed, or pinched between stationary objects, initial encounter
CPT/HCPCS: 99281; 99283; A9270-GY

== ENCOUNTER 2023-11-29 11:33 | Emergency (ER) | payer MEDICARE ==
[2023-11-29 16:05] VITALS: BP 166/87; PULSE 83
== END 2023-11-29 12:52 | disposition home or self-care (01) ==
LOC: LB.ED 11:33
DX: M54.50 Low back pain, unspecified (principal); I10 Essential (primary) hypertension; E78.00 Pure hypercholesterolemia, unspecified; J45.909 Unspecified asthma, uncomplicated; E11.9 Type 2 diabetes mellitus without complications; F17.210 Nicotine dependence, cigarettes, uncomplicated; Z90.49 Acquired absence of other specified parts of digestive tract; Z88.2 Allergy status to sulfonamides; Z88.0 Allergy status to penicillin; Z79.82 Long term (current) use of aspirin; Z79.899 Other long term (current) drug therapy
CPT/HCPCS: 99283

== ENCOUNTER 2023-12-24 21:28 | Inpatient (IN) | payer MEDICARE ==
[2023-12-24] MEDS ORDERED: Sodium Chloride 0.9% 10 ML Syringe FLUSH PRN (22:15)
[2023-12-24] MEDS ORDERED: Sodium Chloride 0.9% 500 ML IV ONE ×2 (22:15→23:09)
[2023-12-24] MEDS ORDERED: Acetaminophen 500 MG Tab PO ONE (22:25)
[2023-12-24] MEDS ORDERED: Albuterol 0.083% 2.5 MG/3 ML Neb Soln NEB ONE (22:26)
[2023-12-24] MEDS ORDERED: Acetaminophen 500 MG Tab ONE (22:28)
[2023-12-24] MEDS ORDERED: Albuterol 0.083% 2.5 MG/3 ML Neb Soln ONE (22:28)
[2023-12-24 22:48] LABS: BASOPHILS ABSOLUTE AUTO 0.02 K/uL (0.02-0.10); BASOPHILS PERCENT AUTO 0.1 % (0.0-0.5); HEMATOCRIT 32.5 % (37.0-47.0); HEMOGLOBIN 11.5 g/dL (11.5-16.5); LYMPHOCYTES ABSOLUTE AUTO 1.44 K/uL (1.50-4.00); MEAN CORPUSCULAR HGB CONC 35.4 g/dL (31.0-35.0); MEAN CORPUSCULAR VOLUME 79 fL (76-96); MEAN PLATELET VOLUME 9.4 fL (6.0-10.0); MONOCYTES ABSOLUTE AUTO 1.39 K/uL (0.20-0.80); MONOCYTES PERCENT AUTO 9.7 % (3.0-10.0); NEUTROPHILS ABSOLUTE AUTO 11.48 K/uL (2.00-7.50); NEUTROPHILS PERCENT AUTO 80.2 % (45.0-70.0); PLATELET COUNT,PLT 314 K/uL (150-500); RED BLOOD CELL COUNT 4.11 M/uL (3.80-5.80); RED CELL DISTRIBUTION WIDTH 14.3 % (11.0-16.0); WHITE BLOOD CELL COUNT,WBC 14.3 K/uL (4.0-11.0)
[2023-12-24 22:57] LABS: A/G RATIO 0.8 (0.8-2.0); ALANINE AMINOTRANSFERASE,ALT 25 U/L (12-78); ALKALINE PHOSPHATASE 49 U/L (46-116); ASPARTATE AMNIOTRANSFERASE,AST 28 U/L (15-37); BILIRUBIN TOTAL 0.7 mg/dL (0.0-1.0); BLOOD UREA NITROGEN,BUN 22 mg/dL (8-26); BUN/CREATININE RATIO 8.7 (6-25); CALCIUM 8.8 mg/dL (8.5-10.1); CARBON DIOXIDE,CO2 21.8 mmol/L (21.0-32.0); CREATININE 2.52 mg/dL (0.55-1.02); ESTIMATED GFR 21 mL/min (>60); GLUCOSE RANDOM 185 mg/dL (74-100); POTASSIUM,K 4.5 mmol/L (3.5-5.1); PROTEIN TOTAL,TP 6.7 g/dL (6.4-8.2); SODIUM,NA 123 mmol/L (136-145)
[2023-12-24 23:00] LABS: APPEARANCE,URINE CLOUDY (CLEAR); BILIRUBIN,URINE NEGATIVE (NEGATIVE); COLOR,URINE YELLOW; GLUCOSE,URINE NEGATIVE (NEGATIVE); KETONES,URINE NEGATIVE (NEGATIVE); LEUKOCYTE ESTERASE,URINE SMALL (NEGATIVE); NITRITE,URINE NEGATIVE (NEGATIVE); OCCULT BLOOD,URINE MODERATE (NEGATIVE); PH,URINE 5.5 (5.0-8.0); PROTEIN,URINE 100 mg/dL (NEGATIVE); UROBILINOGEN,URINE 0.2 E.U./dL (0.2-1.0)
[2023-12-24 23:02] LABS: ANION GAP 17.7 mmol/L (5.0-15.0); CHLORIDE,CL 88 mmol/L (98-107)
[2023-12-24 23:07] LABS: RBC,URINE 0-5 /HPF; SQUAMOUS EPITHELIAL CELLS,UR FEW /HPF; WBC,URINE >100 /HPF
[2023-12-24 23:08] LABS: BACTERIA,URINE FEW /HPF
[2023-12-24 23:13] LABS: INFLUENZA A NAA NEGATIVE (NEGATIVE); INFLUENZA B NAA NEGATIVE (NEGATIVE); RESPIRATORY SYNCYTIAL VIR NAA NEGATIVE (NEGATIVE)
[2023-12-24 23:14] LABS: CORONAVIRUS COVID-19 NAA NEGATIVE (NEGATIVE)
[2023-12-24] MEDS ORDERED: cefTRIAXone 1 GM Vial IVPUSH SCH (23:15)
[2023-12-24] MEDS ORDERED: cefTRIAXone 1 GM Vial ONE (23:19)
[2023-12-25] MEDS ORDERED: Ondansetron 4 MG/2 ML SDV IV PRN (00:18)
[2023-12-25] MEDS ORDERED: Sodium Chloride 0.9% 1,000 ML IV SCH (00:18)
[2023-12-25] MEDS: Acetaminophen 325 MG Tab PO PRN ×3 (04:14→20:09)
[2023-12-25] MEDS ORDERED: Non-Formulary Medication 1 Each (Lurasidone Hcl [Latuda] 60 MG Tablet) PO SCH (08:00)
[2023-12-25 08:32] LABS: BASOPHILS ABSOLUTE AUTO 0.03 K/uL (0.02-0.10); BASOPHILS PERCENT AUTO 0.3 % (0.0-0.5); EOSINOPHILS ABSOLUTE AUTO 0.01 K/uL (0.04-0.40); EOSINOPHILS PERCENT AUTO 0.1 % (1.0-5.0); HEMATOCRIT 30.7 % (37.0-47.0); HEMOGLOBIN 10.6 g/dL (11.5-16.5); LYMPHOCYTES ABSOLUTE AUTO 1.17 K/uL (1.50-4.00); LYMPHOCYTES PERCENT AUTO 9.9 % (20.0-40.0); MEAN CORPUSCULAR HGB CONC 34.5 g/dL (31.0-35.0); MEAN CORPUSCULAR VOLUME 81 fL (76-96); MEAN PLATELET VOLUME 9.4 fL (6.0-10.0); MONOCYTES ABSOLUTE AUTO 0.97 K/uL (0.20-0.80); MONOCYTES PERCENT AUTO 8.2 % (3.0-10.0); NEUTROPHILS ABSOLUTE AUTO 9.66 K/uL (2.00-7.50); NEUTROPHILS PERCENT AUTO 81.5 % (45.0-70.0); PLATELET COUNT,PLT 305 K/uL (150-500); RED BLOOD CELL COUNT 3.79 M/uL (3.80-5.80); RED CELL DISTRIBUTION WIDTH 14.3 % (11.0-16.0); WHITE BLOOD CELL COUNT,WBC 11.8 K/uL (4.0-11.0)
[2023-12-25 09:09] LABS: A/G RATIO 0.9 (0.8-2.0); ALBUMIN 2.4 g/dL (3.4-5.0); ANION GAP 17.7 mmol/L (5.0-15.0); BILIRUBIN TOTAL 0.3 mg/dL (0.0-1.0); BUN/CREATININE RATIO 10.5 (6-25); CALCIUM 8.1 mg/dL (8.5-10.1); CARBON DIOXIDE,CO2 20.3 mmol/L (21.0-32.0); CREATININE 1.81 mg/dL (0.55-1.02); EST CRCL DRUG DOSING (CG) 22.26 mL/min; PROTEIN TOTAL,TP 5.2 g/dL (6.4-8.2)
[2023-12-25] MEDS: lamoTRIgine 100 MG Tab PO SCH (11:31)
[2023-12-25] MEDS: Magnesium Oxide 400 MG Tab PO SCH ×2 (11:31→20:08)
[2023-12-25] MEDS: Fenofibrate,Micronized 67 MG Cap PO SCH (11:32)
[2023-12-25] MEDS: Lisinopril 20 MG Tab PO SCH (11:32)
[2023-12-25] MEDS: Omeprazole 20 MG Cap.CR PO SCH (11:32)
[2023-12-25] MEDS: atorvaSTATin 10 MG Tab PO SCH (11:36)
[2023-12-25] MEDS: Docusate Sodium 100 MG Cap PO SCH (11:36)
[2023-12-25] MEDS: Aspirin 81 MG Tab.EC PO SCH (11:36)
[2023-12-25] MEDS: Hydrochlorothiazide 12.5 MG Cap PO SCH (11:36)
[2023-12-25] MEDS: Enoxaparin 30 MG/0.3 ML Syringe SUBCUT SCH (11:37)
[2023-12-25] MEDS: Gabapentin 300 MG Cap PO SCH ×2 (11:38→20:10)
[2023-12-25] MEDS: traMADol 50 MG Tab PO PRN ×2 (12:57→20:12)
[2023-12-25] MEDS ORDERED: Albuterol/Ipratropium 3.0-0.5 MG/3 ML Neb Soln NEB SCH (18:30)
[2023-12-25] MEDS: Nicotine 21 MG/24 Hr Patch TRDERM SCH (19:27)
[2023-12-25] MEDS: cefTRIAXone 1 GM Vial IVPUSH SCH (20:08)
[2023-12-25] MEDS: traZODone 50 MG Tab PO SCH (20:08)
[2023-12-26] MEDS: traMADol 50 MG Tab PO PRN ×2 (02:05→16:12)
[2023-12-26] MEDS: lamoTRIgine 100 MG Tab PO SCH (07:54)
[2023-12-26] MEDS: Fenofibrate,Micronized 67 MG Cap PO SCH (07:54)
[2023-12-26] MEDS: Docusate Sodium 100 MG Cap PO SCH (07:55)
[2023-12-26] MEDS: Gabapentin 300 MG Cap PO SCH ×2 (07:55→20:34)
[2023-12-26] MEDS: Aspirin 81 MG Tab.EC PO SCH (07:55)
[2023-12-26] MEDS: Hydrochlorothiazide 12.5 MG Cap PO SCH (07:55)
[2023-12-26] MEDS: Magnesium Oxide 400 MG Tab PO SCH ×2 (07:55→20:34)
[2023-12-26] MEDS: Omeprazole 20 MG Cap.CR PO SCH (07:56)
[2023-12-26] MEDS: atorvaSTATin 10 MG Tab PO SCH (07:56)
[2023-12-26] MEDS: Lisinopril 20 MG Tab PO SCH (07:56)
[2023-12-26] MEDS: Enoxaparin 30 MG/0.3 ML Syringe SUBCUT SCH (07:57)
[2023-12-26] MEDS: Albuterol/Ipratropium 3.0-0.5 MG/3 ML Neb Soln NEB SCH ×4 (07:57→20:35)
[2023-12-26] MEDS: Nicotine 21 MG/24 Hr Patch TRDERM SCH (07:57)
[2023-12-26 08:35] LABS: HEMATOCRIT 29.9 % (37.0-47.0); HEMOGLOBIN 10.2 g/dL (11.5-16.5); MEAN CORPUSCULAR HEMOGLOBIN 28.2 pg (27.0-32.0); MEAN CORPUSCULAR HGB CONC 34.1 g/dL (31.0-35.0); MEAN PLATELET VOLUME 9.8 fL (6.0-10.0); RED BLOOD CELL COUNT 3.62 M/uL (3.80-5.80); RED CELL DISTRIBUTION WIDTH 14.3 % (11.0-16.0); WHITE BLOOD CELL COUNT,WBC 7.8 K/uL (4.0-11.0)
[2023-12-26 08:55] LABS: ANION GAP 14.4 mmol/L (5.0-15.0); BUN/CREATININE RATIO 8.7 (6-25); CALCIUM 8.7 mg/dL (8.5-10.1); CARBON DIOXIDE,CO2 24.5 mmol/L (21.0-32.0); CREATININE 1.38 mg/dL (0.55-1.02); EST CRCL DRUG DOSING (CG) 29.19 mL/min; POTASSIUM,K 3.9 mmol/L (3.5-5.1)
[2023-12-26] MEDS: Acetaminophen 325 MG Tab PO PRN (14:44)
[2023-12-26] MEDS: traZODone 50 MG Tab PO SCH (20:34)
[2023-12-26] MEDS: cefTRIAXone 1 GM Vial IVPUSH SCH (20:35)
[2023-12-27 04:08] VITALS: PULSE 88
[2023-12-27] MEDS: Omeprazole 20 MG Cap.CR PO SCH (07:44)
[2023-12-27] MEDS: lamoTRIgine 100 MG Tab PO SCH (07:44)
[2023-12-27] MEDS: Enoxaparin 30 MG/0.3 ML Syringe SUBCUT SCH (07:44)
[2023-12-27] MEDS: Albuterol/Ipratropium 3.0-0.5 MG/3 ML Neb Soln NEB SCH (07:44)
[2023-12-27] MEDS: Fenofibrate,Micronized 67 MG Cap PO SCH (07:44)
[2023-12-27] MEDS: Lisinopril 20 MG Tab PO SCH (07:44)
[2023-12-27] MEDS: Magnesium Oxide 400 MG Tab PO SCH (07:45)
[2023-12-27] MEDS: Docusate Sodium 100 MG Cap PO SCH (07:45)
[2023-12-27] MEDS: Aspirin 81 MG Tab.EC PO SCH (07:45)
[2023-12-27] MEDS: Gabapentin 300 MG Cap PO SCH (07:45)
[2023-12-27] MEDS: Hydrochlorothiazide 12.5 MG Cap PO SCH (07:45)
[2023-12-27] MEDS: atorvaSTATin 10 MG Tab PO SCH (07:45)
[2023-12-27 07:47] VITALS: BP 121/72
== END 2023-12-27 10:15 | disposition home or self-care (01) | DRG 683 ==
LOC: LB.ED 21:28 → LB.MS 23:37
PROVIDERS: ADMIT Nurse Practitioner Family; ATTEND Surgery
DX: N17.9 Acute kidney failure, unspecified (principal); E87.1 Hypo-osmolality and hyponatremia; D72.829 Elevated white blood cell count, unspecified; N39.0 Urinary tract infection, site not specified; N12 Tubulo-interstitial nephritis, not specified as acute or chronic; R79.89 Other specified abnormal findings of blood chemistry; R50.9 Fever, unspecified; E78.00 Pure hypercholesterolemia, unspecified; F17.210 Nicotine dependence, cigarettes, uncomplicated; K21.9 Gastro-esophageal reflux disease without esophagitis; M19.90 Unspecified osteoarthritis, unspecified site; G89.29 Other chronic pain; E11.40 Type 2 diabetes mellitus with diabetic neuropathy, unspecified; F41.9 Anxiety disorder, unspecified; F31.9 Bipolar disorder, unspecified; E87.8 Other disorders of electrolyte and fluid balance, not elsewhere classified; J44.9 Chronic obstructive pulmonary disease, unspecified; N18.9 Chronic kidney disease, unspecified; I12.9 Hypertensive chronic kidney disease with stage 1 through stage 4 chronic kidney disease, or unspecified chronic kidney disease; M54.50 Low back pain, unspecified; E11.65 Type 2 diabetes mellitus with hyperglycemia; E86.0 Dehydration; E11.22 Type 2 diabetes mellitus with diabetic chronic kidney disease; F20.9 Schizophrenia, unspecified; Z11.52 Encounter for screening for COVID-19; Z79.899 Other long term (current) drug therapy; Z79.82 Long term (current) use of aspirin; Z88.0 Allergy status to penicillin; Z88.2 Allergy status to sulfonamides; Z90.49 Acquired absence of other specified parts of digestive tract
CPT/HCPCS: 0241U; 36415; 71045; 71250; 74176; 80048; 80053; 81001; 82947; 83605; 85025; 85027; 87040; 87086; 96361; 96374; 99222; 99232; 99238; 99285-25; A9270-GY; J0696; J1650; J7030; J7040; J7620

== ENCOUNTER 2024-05-14 11:49 | Emergency (ER) | payer MEDICARE ==
[2024-05-14 12:48] LABS: A/G RATIO 1.1 (0.8-2.0); ANION GAP 16.2 mmol/L (5.0-15.0); BILIRUBIN TOTAL 0.7 mg/dL (0.0-1.0); BUN/CREATININE RATIO 9.6 (6-25); CALCIUM 9.8 mg/dL (8.5-10.1); CARBON DIOXIDE,CO2 25.1 mmol/L (21.0-32.0); CREATININE 1.57 mg/dL (0.55-1.02); EST CRCL DRUG DOSING (CG) 25.32 mL/min; POTASSIUM,K 4.3 mmol/L (3.5-5.1); PROTEIN TOTAL,TP 7.6 g/dL (6.4-8.2)
[2024-05-14] MEDS: amLODIPine 5 MG Tab PO ONE (13:00)
[2024-05-14 13:05] LABS: HEMATOCRIT 40.3 % (37.0-47.0); HEMOGLOBIN 13.7 g/dL (11.5-16.5); MEAN CORPUSCULAR HEMOGLOBIN 28.2 pg (27.0-32.0); MEAN CORPUSCULAR VOLUME 83 fL (76-96); RED BLOOD CELL COUNT 4.86 M/uL (3.80-5.80); WHITE BLOOD CELL COUNT,WBC 14.1 K/uL (4.0-11.0)
[2024-05-14 13:07] LABS: BASOPHILS ABSOLUTE AUTO 0.04 K/uL (0.02-0.10); BASOPHILS PERCENT AUTO 0.3 % (0.0-0.5); EOSINOPHILS ABSOLUTE AUTO 0.01 K/uL (0.04-0.40); EOSINOPHILS PERCENT AUTO 0.1 % (1.0-5.0); LYMPHOCYTES ABSOLUTE AUTO 3.82 K/uL (1.50-4.00); LYMPHOCYTES PERCENT AUTO 27.1 % (20.0-40.0); MEAN PLATELET VOLUME 9.5 fL (6.0-10.0); MONOCYTES ABSOLUTE AUTO 0.71 K/uL (0.20-0.80); NEUTROPHILS ABSOLUTE AUTO 9.53 K/uL (2.00-7.50); NEUTROPHILS PERCENT AUTO 67.5 % (45.0-70.0); PLATELET COUNT,PLT 450 K/uL (150-500); RED CELL DISTRIBUTION WIDTH 13.3 % (11.0-16.0)
[2024-05-14] MEDS: Levofloxacin 500 MG Tab PO ONE (13:15)
[2024-05-14 13:24] VITALS: PULSE 91
[2024-05-14 13:25] VITALS: BP 196/116
== END 2024-05-14 13:20 | disposition home or self-care (01) ==
LOC: LB.ED 11:49
DX: J20.9 Acute bronchitis, unspecified (principal); I10 Essential (primary) hypertension; K21.9 Gastro-esophageal reflux disease without esophagitis; E11.9 Type 2 diabetes mellitus without complications; Z88.0 Allergy status to penicillin; Z88.2 Allergy status to sulfonamides; Z79.82 Long term (current) use of aspirin; Z79.899 Other long term (current) drug therapy; Z90.49 Acquired absence of other specified parts of digestive tract
CPT/HCPCS: 36415; 71045; 80053; 85025; 99283; A9270

== ENCOUNTER 2024-06-17 09:39 | Emergency (ER) | payer MEDICARE ==
[2024-06-17 10:21] LABS: BASOPHILS ABSOLUTE AUTO 0.04 K/uL (0.02-0.10); BASOPHILS PERCENT AUTO 0.3 % (0.0-0.5); EOSINOPHILS ABSOLUTE AUTO 0.04 K/uL (0.04-0.40); EOSINOPHILS PERCENT AUTO 0.3 % (1.0-5.0); HEMATOCRIT 37.7 % (37.0-47.0); HEMOGLOBIN 12.7 g/dL (11.5-16.5); LYMPHOCYTES ABSOLUTE AUTO 3.44 K/uL (1.50-4.00); LYMPHOCYTES PERCENT AUTO 21.8 % (20.0-40.0); MEAN CORPUSCULAR HEMOGLOBIN 28.3 pg (27.0-32.0); MEAN CORPUSCULAR HGB CONC 33.7 g/dL (31.0-35.0); MEAN CORPUSCULAR VOLUME 84 fL (76-96); MEAN PLATELET VOLUME 9.1 fL (6.0-10.0); MONOCYTES ABSOLUTE AUTO 0.98 K/uL (0.20-0.80); MONOCYTES PERCENT AUTO 6.2 % (3.0-10.0); NEUTROPHILS ABSOLUTE AUTO 11.26 K/uL (2.00-7.50); NEUTROPHILS PERCENT AUTO 71.4 % (45.0-70.0); PLATELET COUNT,PLT 422 K/uL (150-500); RED BLOOD CELL COUNT 4.49 M/uL (3.80-5.80); RED CELL DISTRIBUTION WIDTH 14.7 % (11.0-16.0); WHITE BLOOD CELL COUNT,WBC 15.8 K/uL (4.0-11.0)
[2024-06-17 10:42] LABS: PTT,PARTIAL THROMBOPLSTIN TIME 23.7 SECONDS (24.4-33.2)
[2024-06-17 10:45] LABS: ALBUMIN 3.6 g/dL (3.4-5.0); ANION GAP 15.2 mmol/L (5.0-15.0); BILIRUBIN TOTAL 0.4 mg/dL (0.0-1.0); BUN/CREATININE RATIO 16.3 (6-25); CALCIUM 9.5 mg/dL (8.5-10.1); CARBON DIOXIDE,CO2 22.9 mmol/L (21.0-32.0); CREATININE 2.02 mg/dL (0.55-1.02); EST CRCL DRUG DOSING (CG) 19.68 mL/min; MAGNESIUM 1.4 mg/dL (1.8-2.4); POTASSIUM,K 4.1 mmol/L (3.5-5.1); PROTEIN TOTAL,TP 7.1 g/dL (6.4-8.2); TROPONIN I HIGH SENSITIVITY 10.9 pg/ml (<=60.4)
[2024-06-17 10:48] LABS: PROTHROMBIN TIME 10.1 sec (9.0-11.5)
[2024-06-17] MEDS: Sodium Chloride 0.9% 1,000 ML IV ONE (11:35)
[2024-06-17] MEDS: Magnesium Sulfate/Water 2 GM in Premix Bag 1 BAG IV ONE (11:36)
[2024-06-17 12:45] LABS: APPEARANCE,URINE CLEAR (CLEAR); BILIRUBIN,URINE NEGATIVE (NEGATIVE); COLOR,URINE YELLOW; GLUCOSE,URINE NEGATIVE (NEGATIVE); KETONES,URINE NEGATIVE (NEGATIVE); LEUKOCYTE ESTERASE,URINE TRACE (NEGATIVE); NITRITE,URINE NEGATIVE (NEGATIVE); OCCULT BLOOD,URINE NEGATIVE (NEGATIVE); PROTEIN,URINE NEGATIVE (NEGATIVE); UROBILINOGEN,URINE 0.2 E.U./dL (0.2-1.0)
[2024-06-17 12:48] LABS: RBC,URINE NOT SEEN /HPF; SQUAMOUS EPITHELIAL CELLS,UR FEW /HPF; WBC,URINE 0-5 /HPF
[2024-06-17 12:50] LABS: RENAL EPITHELIAL CELLS,URINE OCCASIONAL /HPF
[2024-06-17] MEDS: Magnesium Sulfate/Water 50 ML ONE (17:31)
[2024-06-17] MEDS ORDERED: Sodium Chloride 0.9% 10 ML Syringe FLUSH PRN (17:34)
[2024-06-17 17:42] VITALS: BP 172/94; PULSE 103
== END 2024-06-17 15:30 | disposition home or self-care (01) ==
LOC: LB.ED 09:39
DX: E87.1 Hypo-osmolality and hyponatremia (principal); E86.0 Dehydration; I10 Essential (primary) hypertension; K21.9 Gastro-esophageal reflux disease without esophagitis; E11.9 Type 2 diabetes mellitus without complications; Z79.899 Other long term (current) drug therapy; Z79.84 Long term (current) use of oral hypoglycemic drugs; Z79.82 Long term (current) use of aspirin; Z88.0 Allergy status to penicillin; Z88.2 Allergy status to sulfonamides
CPT/HCPCS: 36415; 71045; 80053; 81001; 83735; 84484; 85025; 85610; 85730; 93005; 96365; 96366; 99285; J3475; J7030

== ENCOUNTER 2025-06-30 08:58 | Emergency (ER) | payer MEDICARE ==
[2025-06-30] MEDS: Ketorolac 30 MG/ML SDV IM ONE (09:32)
[2025-06-30 11:11] VITALS: BP 168/78; PULSE 84
== END 2025-06-30 10:56 | disposition home or self-care (01) ==
LOC: LB.ED 08:58
DX: M25.562 Pain in left knee (principal); I10 Essential (primary) hypertension; E11.9 Type 2 diabetes mellitus without complications; F17.200 Nicotine dependence, unspecified, uncomplicated; Z88.0 Allergy status to penicillin; Z88.2 Allergy status to sulfonamides; Z79.82 Long term (current) use of aspirin; Z79.899 Other long term (current) drug therapy; Z90.49 Acquired absence of other specified parts of digestive tract
CPT/HCPCS: 73562; 96372; 99283; J1885; 97161-GP